=== PATIENT | female | born 1975 | race Caucasian/White ===

== ENCOUNTER → 2018-10-12 | Outpatient (CLI) | payer BC, OTHER ==
[~2018-10-12] MED LIST: BREX3TAB PO; BUSP15TA69 PO; OXYC-865 PO; VENL75CA58 PO
--- NOTE | 2018-10-12 16:32 | RADIOLOGY IMAGING REPORT ---
FACILITY: [facility] PATIENT NAME: ISMAEL MONTOYA : [id number] MR: [id number] V: [id number] EXAM DATE: [id number] ORDERING PHYSICIAN: LAZARUS RAZO TECHNOLOGIST: Roxana De Los Santos PROCEDURE: BILATERAL DIGITAL SCREENING MAMMOGRAM WITH CAD ASSISTED INTERPRETATION & 3D TOMOSYNTHESIS REASON FOR STUDY: Screening. COMPARISON: None baseline study. VIEWS OBTAINED: 2D & 3D full field CC & MLO. BREAST DENSITY: The breast parenchyma is almost entirely fatty. MAMMOGRAM FINDINGS: There are no mammographic findings concerning for malignancy. Decorative skin piercings are present in the superior aspect of each breast. IMPRESSION: BIRADS 1: Negative. DIAGNOSTIC CATEGORY 1--NEGATIVE. RECOMMENDATIONS: ROUTINE MAMMOGRAM AND CLINICAL EVALUATION. Dictated by: Judah Ruiz on 10/12/2018 at 14:59 Transcribed by: ROMAN on 10/12/2018 at 15:30 Approved by: Judah Ruiz on 10/12/2018 at 16:30 [facility]
== END ==
LOC: MAMO 00:24
PROVIDERS: ATTEND Physician Assistant
DX: Z12.31 Encounter for screening mammogram for malignant neoplasm of breast (principal)
CPT/HCPCS: 77063; 77067